=== PATIENT | female | born 2000 | race Caucasian/White ===

== ENCOUNTER 2019-10-16 12:48 | Emergency (ER) | payer OTHER ==
[2019-10-16] MEDS ORDERED: NA CHLORIDE 0.9% 1,000 ML ONE (13:24)
[2019-10-16 13:25] LABS: Absolute Lymphocytes (CBC) 2.1 K/uL (0.7-4.9); Basophils % 0.5 % (0-1.3); Hematocrit 35.9 % (36.0-45.0); Lymphocytes % 19.9 % (15.3-44.8); MPV 9.5 fL (7.6-11.3); RBC Red Blood Cell Count 4.35 M/uL (3.86-4.86)
[2019-10-16 13:27] LABS: Urine Blood TRACE (NEG); Urine Glucose NEGATIVE (NEG); Urine Protein NEGATIVE (NEG); Urine Specific Gravity 1.015 (1.005-1.030)
[2019-10-16 14:03] LABS: BUN Blood Urea Nitrogen 5 mg/dL (7-18); Bicarbonate 25 mmol/L (21-32); Glucose Level 104 mg/dL (74-106); HCG, Quantitative 8444 mIU/mL (1-3); Potassium 3.4 mmol/L (3.5-5.1); Sodium Level 140 mmol/L (136-145)
--- NOTE | 2019-10-16 14:43 | ER ---
Nurse's Notes [facility] Name: Domingo Viera Age: 19 yrs Sex: Female : 2000 Arrival Date: 10/16/2019 Time: 12:51 Bed 23 Private MD: Diagnosis: Threatened ;Acute upper respiratory infection, unspecified;Hypokalemia Presentation: 10/16 13:00 Presenting complaint: Patient states: i was seen in [place] [facility] yesterday and they just mg2 did a urine test and pelvic ultrasound on me, they said my baby is ok and i have bacteria in my urine but they cant give me a direct answer why im bleeding and i dont have a uti. im 6 weeks , im bleeding for 2 days and cramping too. im also concerned that i have flu. Transition of care: patient was not received from another setting of care. Onset of symptoms was October 15, 2019. Risk Assessment: Do you want to hurt yourself or someone else? Patient reports no desire to harm self or others. Initial Sepsis Screen: Does the patient meet any 2 criteria? No. Patient's initial sepsis screen is negative. Does the patient have a suspected source of infection? No. Patient's initial sepsis screen is negative. Care prior to arrival: None. 13:00 Method Of Arrival: Ambulatory mg2 13:00 Acuity: SHAWNA 3 mg2 Triage Assessment: 15:27 General: Behavior is calm, cooperative. 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 - Social history:: Smoking status: Patient/guardian denies using tobacco, Patient/guardian denies using alcohol, street drugs, IV drugs. - Ebola Screening: : No symptoms or risks identified at this time. - Family history:: not pertinent. Screenin:40 Abuse screen: Denies threats or abuse. Denies injuries from another. Nutritional mg2 screening: No deficits noted. Tuberculosis screening: No symptoms or risk factors identified. Fall Risk IV access (20 points). Assessment: 14:40 General: Appears in no apparent distress. comfortable. Pain: Denies pain. Neuro: Level mg2 of Consciousness is awake, alert, obeys commands, Oriented to person, place, time, situation. Cardiovascular: Capillary refill < 3 seconds Patient's skin is warm and dry. Respiratory: Airway is patent Respiratory effort is even, unlabored, Respiratory pattern is regular, symmetrical. Respiratory: Reports cough that is. GI: No signs and/or symptoms were reported involving the gastrointestinal system. : Urine is blood tinged. : Reports vaginal bleeding that is light flow, spotty, since yesterday. EENT: No signs and/or symptoms were reported regarding the EENT system. Derm: Skin is intact, is healthy with good turgor, Skin is pink, warm \T\ dry. normal. 15:06 Reassessment: Patient appears in no apparent distress at this time. Patient and/or mg2 family updated on plan of care and expected duration. Pain level reassessed. Patient is alert, oriented x 3, equal unlabored respirations, skin warm/dry/pink. Vital Signs: 13:03 BP 141 / 84; Pulse 113; Resp 18; Temp 98.3; Pulse Ox 100% on R/A; Weight 112.04 kg; mg2 Height 5 ft. 7 in. (170.18 cm); Pain 0/10; 15:05 BP 134 / 78; Pulse 95; Resp 18; Temp 98; Pulse Ox 100% on R/A; mg2 13:03 Body Mass Index 38.69 (112.04 kg, 170.18 cm) mg2 ED Course: 12:51 Patient arrived in ED. mr 12:53 Guilherme Murguia MD is Attending Physician. fili 12:54 Kenneth Lopez, HARISH is Primary Nurse. mg2 13:03 Triage completed. mg2 13:23 No provider procedures requiring assistance completed. Inserted saline lock: 20 gauge mg2 in right antecubital area, using aseptic technique. Blood collected. 13:50 Ultrasound completed. Patient tolerated well. Notified ED Physician buddy. sg3 14:40 US Transvaginal Ob In Process Unspecified. EDMS 14:40 Patient has correct armband on for positive identification. mg2 14:41 Troy Subramanian MD is Referral Physician. fili 15:06 IV discontinued, intact, bleeding controlled, No redness/swelling at site. Pressure mg2 dressing applied. 15:28 Arm band placed on. mg2 Administered Medications: 13:22 Drug: NS 0.9% 1000 ml Route: IV; Rate: 1 bolus; Site: right antecubital; mg2 14:42 Follow up: Response: No adverse reaction; IV Status: Completed infusion; IV Intake: mg2 1000ml 14:59 Drug: Potassium Effervescent Tablet 25 mEq Route: PO; mg2 15:00 Follow up: Response: No adverse reaction; Medication administered at discharge. mg2 Point of Care Testing: Urine : 15:28 hCG Reading: Positive; Control Reading: Positive; mg2 Intake: 14:42 IV: 1000ml; Total: 1000ml. mg2 Outcome: 14:42 Discharge ordered by . [facility] 15:06 Discharged to home ambulatory, with friend. mg2 15:06 Condition: stable 15:06 Discharge instructions given to patient, friend, Instructed on discharge instructions, follow up and referral plans. medication usage, Demonstrated understanding of instructions, follow-up care, medications, Prescriptions given X 2. 15:28 Patient left the ED. mg2 Signatures: Dispatcher [employer] EDGuilherme Birch MD MD cha Rivera, Mary mr Godinez, Sarah Kenneth Lion, RN RN mg2
--- NOTE | 2019-10-16 14:44 | EDPHYS ---
Physician Documentation [facility] Name: Domingo Viera Age: 19 yrs Sex: Female : 2000 Arrival Date: 10/16/2019 Time: 12:51 Bed 23 Private MD: ED Physician Guilherme Murguia HPI: 10/16 13:51 This 19 yrs old Female presents to ER via Ambulatory with complaints of fili Vaginal Bleeding, + Preg <12wks, Flu Symptoms. 13:51 The patient presents to the emergency department with vaginal bleeding. The estimated [facility] gestational age is 6 weeks. course: care: none. Previous pregnancies: the patient has never been . The patient has not experienced similar symptoms in the past. 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 - Social history:: Smoking status: Patient/guardian denies using tobacco, Patient/guardian denies using alcohol, street drugs, IV drugs. - Ebola Screening: : No symptoms or risks identified at this time. - Family history:: not pertinent. ROS: 13:51 Constitutional: Negative for fever, chills, and weight loss, Eyes: Negative for injury, fili pain, redness, and discharge, Neck: Negative for injury, pain, and swelling, Respiratory: Negative for shortness of breath, cough, wheezing, and pleuritic chest pain, Abdomen/GI: Negative for abdominal pain, nausea, vomiting, diarrhea, and constipation, Back: Negative for injury and pain, MS/Extremity: Negative for injury and deformity, Skin: Negative for injury, rash, and discoloration, Neuro: Negative for headache, weakness, numbness, tingling, and seizure, Psych: Negative for depression, anxiety, suicide ideation, homicidal ideation, and hallucinations, Allergy/Immunology: Negative for hives, rash, and allergies, Endocrine: Negative for neck swelling, polydipsia, polyuria, polyphagia, and marked weight changes, Hematologic/Lymphatic: Negative for swollen nodes, abnormal bleeding, and unusual bruising. 13:51 ENT: Positive for sore throat. 13:51 Respiratory: Positive for cough, with no reported sputum. 13:51 : Positive for vaginal bleeding. Exam: 13:51 Constitutional: This is a well developed, well nourished patient who is awake, alert, fili and in no acute distress. Head/Face: Normocephalic, atraumatic. Eyes: Pupils equal round and reactive to light, extra-ocular motions intact. Lids and lashes normal. Conjunctiva and sclera are non-icteric and not injected. Cornea within normal limits. Periorbital areas with no swelling, redness, or edema. ENT: Nares patent. No nasal discharge, no septal abnormalities noted. Tympanic membranes are normal and external auditory canals are clear. Oropharynx with no redness, swelling, or masses, exudates, or evidence of obstruction, uvula midline. Mucous membranes moist. Neck: Trachea midline, no thyromegaly or masses palpated, and no cervical lymphadenopathy. Supple, full range of motion without nuchal rigidity, or vertebral point tenderness. No Meningismus. Chest/axilla: Normal chest wall appearance and motion. Nontender with no deformity. No lesions are appreciated. Abdomen/GI: Soft, non-tender, with normal bowel sounds. No distension or tympany. No guarding or rebound. No evidence of tenderness throughout. Back: No spinal tenderness. No costovertebral tenderness. Full range of motion. Skin: Warm, dry with normal turgor. Normal color with no rashes, no lesions, and no evidence of cellulitis. MS/ Extremity: Pulses equal, no cyanosis. Neurovascular intact. Full, normal range of motion. Neuro: Awake and alert, GCS 15, oriented to person, place, time, and situation. Cranial nerves II-XII grossly intact. Motor strength 5/5 in all extremities. Sensory grossly intact. Cerebellar exam normal. Normal gait. Psych: Awake, alert, with orientation to person, place and time. Behavior, mood, and affect are within normal limits. 13:51 Cardiovascular: Rate: tachycardic, Rhythm: regular, Pulses: Pulses are 4+ in bilateral radial, brachial, femoral, popliteal, posterior tibial and and dorsalis pedis arteries.. Heart sounds: normal, JVD: is not appreciated. Vital Signs: 13:03 BP 141 / 84; Pulse 113; Resp 18; Temp 98.3; Pulse Ox 100% on R/A; Weight 112.04 kg; mg2 Height 5 ft. 7 in. (170.18 cm); Pain 0/10; 15:05 BP 134 / 78; Pulse 95; Resp 18; Temp 98; Pulse Ox 100% on R/A; mg2 13:03 Body Mass Index 38.69 (112.04 kg, 170.18 cm) mg2 MDM: 12:53 Patient medically screened. [facility] 13:56 Data reviewed: vital signs, nurses notes, lab test result(s), EKG, radiologic studies, fili plain films. 10/16 12:55 Order name: Quantitative Hcg; Complete Time: 14:36 fili 10/16 12:55 Order name: Abo/rh Typing; Complete Time: 14:36 fili 10/16 12:55 Order name: Basic Metabolic Panel; Complete Time: 14:36 fili 10/16 12:55 Order name: CBC with Diff; Complete Time: 14:36 fili 10/16 13:06 Order name: Flu; Complete Time: 14:36 mg2 10/16 13:07 Order name: Strep; Complete Time: 14:36 mg2 10/16 12:55 Order name: Urine Test (obtain specimen); Complete Time: 13:23 fili 10/16 12:55 Order name: IV Saline Lock; Complete Time: 13:23 fili 10/16 12:55 Order name: US Transvaginal Ob [facility] 10/16 13:21 Order name: Urine Dipstick--Ancillary (enter results); Complete Time: 14:36 ms 10/16 13:21 Order name: Urine --Ancillary (enter results); Complete Time: 14:36 ms 10/16 13:39 Order name: Throat Culture [facility] 10/16 12:55 Order name: Labs collected and sent; Complete Time: 13:23 fili 10/16 12:55 Order name: NPO; Complete Time: 13:23 fili 10/16 12:55 Order name: Urine Dipstick-Ancillary (obtain specimen); Complete Time: 13:23 [facility] Administered Medications: 13:22 Drug: NS 0.9% 1000 ml Route: IV; Rate: 1 bolus; Site: right antecubital; mg2 14:42 Follow up: Response: No adverse reaction; IV Status: Completed infusion; IV Intake: mg2 1000ml 14:59 Drug: Potassium Effervescent Tablet 25 mEq Route: PO; mg2 15:00 Follow up: Response: No adverse reaction; Medication administered at discharge. mg2 Point of Care Testing: Urine : 15:28 hCG Reading: Positive; Control Reading: Positive; mg2 Disposition: 10/16/19 14:42 Discharged to Home. Impression: Threatened , Acute upper respiratory infection, unspecified, Hypokalemia. - Condition is Stable. - Discharge Instructions: Threatened Miscarriage, Upper Respiratory Infection, Adult, First Trimester of , [id number], First Trimester of , Threatened Miscarriage, [id number], Pelvic Rest, Cough, Adult, Hypokalemia. - Prescriptions for Amoxicillin 500 mg Oral Capsule - take 1 capsule by ORAL route every 8 hours for 7 days; 21 tablet. Vitamin 27- 0.8 mg Oral Tablet - take 1 tablet by ORAL route once daily; 30 tablet. - Medication Reconciliation Form, Thank You Letter, Antibiotic Education, Prescription Opioid Use form. - Follow up: Private Physician; When: 2 - 3 days; Reason: Recheck today's complaints, Continuance of care, Re-evaluation by your physician. Follow up: Troy Subramanian MD; When: 2 - 3 days; Reason: Recheck today's complaints, Continuance of care, Re-evaluation by your physician. - Problem is new. - Symptoms have improved. Signatures: Dispatcher [employer] Guilherme Birch MD MD cha Gardose, Michele RN RN mg2 Corrections: (The following items were deleted from the chart) 15:28 14:42 10/16/2019 14:42 Discharged to Home. Impression: Threatened ; Acute upper mg2 respiratory infection, unspecified; Hypokalemia. Condition is Stable. Forms are Medication Reconciliation Form, Thank You Letter, Antibiotic Education, Prescription Opioid Use. Follow up: Private Physician; When: 2 - 3 days; Reason: Recheck today's complaints, Continuance of care, Re-evaluation by your physician. Follow up: Troy Subramanian; When: 2 - 3 days; Reason: Recheck today's complaints, Continuance of care, Re-evaluation by your physician. Problem is new. Symptoms have improved. fili
[2019-10-16] MEDS ORDERED: POTASSIUM 25 MEQ EFFERV TAB ONE (14:47)
[2019-10-16] MEDS ORDERED: NA CHLORIDE 0.9% 0 ML ONE (14:54)
--- NOTE | 2019-10-16 15:23 | RAD REPORT ---
EXAM DESCRIPTION: US - Transvaginal OB - 10/16/2019 2:40 pm CLINICAL HISTORY: ABD CRAMPING, COMPARISON: No comparisons TECHNIQUE: Endovaginal sonography performed. FINDINGS: Normal shaped intrauterine gestational sac identified. Small subchorionic hemorrhage is pr esent not considered significant at this time. Yolk sac and pole are identifiable. Heart rate w as 105 BPM. Estimated age is 6 weeks 1 day. Calculated BRANDON is 06/10/2021. Small amount of fluid is pr esent in the cervix. No adnexal abnormality seen. Ovaries were not visualized, obscured by bowel. IMPRESSION: Single 6 week 1 day sized IUP. Heart rate is 105 BPM. Small subchorionic hemorrhage. No adnexal abnormality.
[2019-10-16 16:21] VITALS: O2SAT 100
[2019-10-16 16:22] VITALS: BP 134/78; TEMP 98
== END 2019-10-16 15:28 | disposition home or self-care (01) ==
LOC: ER 12:48
DX: O20.0 Threatened abortion (principal); Z3A.01 Less than 8 weeks gestation of pregnancy; J06.9 Acute upper respiratory infection, unspecified; E87.6 Hypokalemia; Z88.3 Allergy status to other anti-infective agents
CPT/HCPCS: 87070; 85025; 80048; 36415; 86900; 81025; 86901; 87081; 84702; 81003; 87804 ×2; 76817; 96360; 99284; J7030